=== PATIENT | male | born 2000 | race Native Hawaiian/Other Pacific Islander ===

== ENCOUNTER 2019-02-12 11:53 | Inpatient (IN) | payer MEDICAID ==
--- NOTE | 2019-02-12 12:31 | ED PDOC ---
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 Patient reports he is unable to bear this separation. He has thoughts of suicide but when he thinks about his family, he stops. He states he cut his arm on Friday with a clean knife. Denies any alcohol use, drug use, or hallucinations. PMD: none provided Past Medical History Reviewed: Historical Data, Nursing Documentation, Vital Signs Vital Signs: Last Vital Signs Temp 98.7 F 02/12/19 12:01 Pulse 90 02/12/19 12:01 Resp 18 02/12/19 12:01 BP 120/68 02/12/19 12:01 Pulse Ox 97 02/12/19 12:01 - Medical History PMH: No Chronic Diseases - Surgical History Surgical History: No Surg Hx - Family History Family History: States: Unknown Family Hx - Social History Alcohol: None Drugs: Denies - Home Medications Home Medications: Ambulatory Orders Medication Instructions Recorded Ascorbic Acid [Vitamin C 500 mg 1 tab PO DAILY 02/12/19 Tab] Cyanocobalamin [Vitamin B12 1000 1 tab PO DAILY 02/12/19 mcg Tab] [place]-3 Fatty Acids/Fish Oil [Fish 1 cap PO DAILY 02/12/19 Oil 1,000 mg Capsule] - Allergies Allergies/Adverse Reactions: Allergies Allergy/AdvReac Type Severity Reaction Status Date / Time No Known Allergies Allergy Verified 02/12/19 12:00 Review of Systems ROS Statement: Except As Marked, All Systems Reviewed And Found Negative Psych: Positive for: Suicidal ideation. Negative for: Other (Hallucinations) Physical Exam - Reviewed Nursing Documentation Reviewed: Yes Vital Signs Reviewed: Yes - Physical Exam Appears: Positive for: Non-toxic, No Acute Distress Head Exam: Positive for: ATRAUMATIC, NORMOCEPHALIC Skin: Positive for: Normal Color, Warm, Dry Eye Exam: Positive for: Normal appearance Neck: Positive for: Normal, Painless ROM Cardiovascular/Chest: Positive for: Regular Rate, Rhythm Respiratory: Positive for: Normal Breath Sounds. Negative for: Wheezing, Respiratory Distress Extremity: Positive for: Normal ROM, Other (11 superficial cuts to left forearm) Neurological/Psych: Positive for: Awake, Alert, Normal Tone, Oriented - Laboratory Results Result Diagrams: 02/12/19 15:55 02/12/19 15:55 - ECG ECG Rhythm: Positive for: Sinus Rhythm Interpretation Of ECG: Interpreted and viewed by Dr. Aguilar Rate: 69 O2 Sat by Pulse Oximetry: 97 (RA) Pulse Ox Interpretation: Normal Medical Decision Making Medical Decision Making: Initial Impression: Psychiatric Evaluation Initial Plan: --1:1 observation --Crisis evaluation 15:24 As per outreach and education social worker, mother wants patient to be admitted. rodding anode worker will interview the patient and ask if he is willing to sign in psychiatrically. In the meantime, will do a medical clearance workup including CBC, BMP, UA, EKG, chest X-ray, and alcohol level. 16:00 Patient to be admitted to psych under Dr. Borrero with diagnosis of depressed mood. Pending medical workup for medical clearance for psychiatric admission. 16:33 Patient is medically cleared for psychiatric admission. 20:03 Patient is calm and resting comfortably with mother at bedside. Pending bed availability in behavioral health unit. --- Scribe Attestation: Documented by Castillo Rodriguez and Nikkie Blake, acting as scribes for Charo Padilla APN. Provider Scribe Attestation: All medical record entries made by the Scribe were at my direction and personally dictated by me. I have reviewed the chart and agree that the record accurately reflects my personal performance of the history, physical exam, medical decision making, and the department course for this patient. I have also personally directed, reviewed, and agree with the discharge instructions and disposition. Disposition - Clinical Impression Clinical Impression: Depressed mood - Patient ED Disposition Is Patient to be Admitted: Yes Doctor Will See Patient In The: Hospital Counseled Patient/Family Regarding: Diagnosis - Disposition Disposition Time: 16:33 Condition: STABLE - POA Present On Arrival: None
[2019-02-12 16:12] LABS: BASO % 0.4 % (0.0-2.0); EOS # 0.1 K/uL (0.0-0.7); EOS % 0.8 % (0.0-4.0); HEMOGLOBIN 14.7 g/dL (12.0-18.0); LYMPH # 1.9 K/uL (1.0-4.3); LYMPH % 27.2 % (20.0-40.0); MEAN CELL VOLUME 88.8 fl (80.0-94.0); MEAN CORPUSCULAR HEMOGLOBIN 29.5 pg (27.0-31.0); MEAN CORPUSCULAR HGB CONC 33.3 g/dL (33.0-37.0); MONO # 0.6 K/uL (0.0-0.8); MONO % 7.9 % (0.0-10.0); NEUT # 4.5 K/uL (1.8-7.0); NEUT % 63.7 % (50.0-75.0); RED CELL DISTRIBUTION WIDTH 12.9 % (11.5-14.5); WHITE BLOOD COUNT 7.1 K/uL (4.8-10.8)
[2019-02-12 16:16] LABS: SQUAMOUS EPITHIAL < 1 /hpf (0-5); URINE BACTERIA RARE (<OCC); URINE BILIRUBIN NEGATIVE (NEGATIVE); URINE BLOOD MODERATE (NEGATIVE); URINE CLARITY SLIGHTY-CLOUDY (Clear); URINE COLOR YELLOW (YELLOW); URINE GLUCOSE (UA) NEG (NEGATIVE); URINE LEUKOCYTE ESTERASE NEG Leu/uL (Negative); URINE PROTEIN 30 mg/dL (NEGATIVE); URINE UROBILINOGEN 0.2-1.0 mg/dL (0.2-1.0)
[2019-02-12 16:24] LABS: BLOOD UREA NITROGEN 15 mg/dl (9-20); GFR NON-AFRICAN AMERICAN > 60
[2019-02-12 16:50] LABS: BARBITURATES, UR NEGATIVE (NEGATIVE); BENZODIAZEPINES, UR NEGATIVE (NEGATIVE); OPIATES, UR NEGATIVE (NEGATIVE); PHENCYCLIDINE, UR NEGATIVE (NEGATIVE)
--- NOTE | 2019-02-12 17:42 | RAD ---
Date of service: 02/12/2019 HISTORY: medical clearance COMPARISON: No prior. TECHNIQUE: Chest PA and lateral views FINDINGS: LUNGS: No active pulmonary disease. PLEURA: No significant pleural effusion identified. No pneumothorax apparent. CARDIOVASCULAR: No aortic atherosclerotic calcification present. Normal cardiac size. No pulmonary vascular congestion. OSSEOUS STRUCTURES: No significant abnormalities. VISUALIZED UPPER ABDOMEN: Normal. OTHER FINDINGS: None. IMPRESSION: No active disease.
[2019-02-12] MEDS ORDERED: DiphenhydrAMINE 50 mg/ml Inj IM PRN (21:35)
[2019-02-12] MEDS ORDERED: Alum-Mag Hydrox-Simethicone Susp (30 mL) PO PRN (21:35)
[2019-02-12] MEDS ORDERED: Magnesium Hydroxide Susp 30 ml UD PO PRN (21:35)
--- NOTE | 2019-02-12 21:48 | PCM.BM ---
<Kamran Morgan - Last Filed: 02/12/19 21:44> Treatment Plan Problems - Problems identified on initial assessmt Self Harm Date Initiated: 02/12/19 Time Initiated: :44 Assessment reference: NA Status: Active Priority: 1 Altered Sleep Pattern Date Initiated: 02/12/19 Time Initiated: 21:44 Assessment reference: NA Status: Active Priority: 2 Treatment assets and liabiliti Patient Assests: adapts well, cooperative, educated, self-reliant, ADL independent, physically healthy, good support system, negotiates basic needs, financial stabiity Patient Liabilities: relationship conflicts, other (self injury, poor sleep) - Milieu Protocol Maintain good personal hygiene: daily Encourage regular showers, daily Remind patient to perform daily oral care, daily Assist patient to perform ADL's Maintain personal safety: every shift Educate patient to report safety concerns to staff, every shift Monitor environment for contraband/sharps Medication safety: Monitor for expected outcome, potential side effects: every shift, Assess barriers to learning: every shift, Assess readiness for medication education: every shift <Mayco Johnson - Last Filed: 02/14/19 15:30> Family Contact Family involvement: Family/SO is involved Family contact: Patient agrees to contact, Family has been contacted by patient, Telephone contact initiated by staff Family contact name: Keesha - Mother Family contacted how many times per week?: 2 Family contact comment: Vendor Management Specialist left message for pt's mother and awaiting return call to gather collateral information. [phone]. - Goals for Treatment Patient goals for treatment: Pt offered no goals for treatment at this time as he currently does not feel depressed and wants to leave the unit and return to his life. Pt has signed a 48 hour notice. Discharge/Continuing Care - Education Needs Education Needs: Patient Medication, Patient Diagnosis/Disease Process, Patient Coping Skills, Patient Community resources, Patient Aftercare Safety Plan - Discharge Discharge Criteria: Tolerates medication w/o severe side effects, Free of Suicidal thoughts, Reduction of target symptoms Discharge to:: Other
[2019-02-12 22:13] VITALS: O2SAT 97
--- NOTE | 2019-02-13 09:59 | PCM.PSYCH ---
Initial Psychiatric Evaluation - Initial Psychiatric Evaluation Type of Admission: Voluntary Legal Status: Capacity Chief Complaint (in patient's own words): i broke up Patient's Reaction to Hospitalization: pt is upset. History of Present Illness and Precipitating Events: This is the ist psych admission for this 18 yr old male with h/o depression and admitted because after he broke up with his girlfriend became very depressed and suicidal ideation and wanted to jump out of window and when informed by a friend that he cut his forearm multiple times when he found out that his friend slept with the girlfriend.pt says that he broke up with girlfriend because she told him that she was sleeping with other guys .pt still not able to accept that he broke up with girlfriend and can not control his anger. Current Medications: Active Medications Generic Name Dose Route Start Last Admin Trade Name Freq PRN Reason Stop Dose Admin Acetaminophen 650 mg 02/12/19 21:35 Tylenol 325mg Tab PO Q4 PRN 4-7 pain Al Hydrox/Mg Hydrox/Simethicone 30 ml 02/12/19 21:35 Maalox Plus 30 Ml PO Q4 PRN Dyspepsia Diphenhydramine HCl 50 mg 02/12/19 21:35 Benadryl IM Q6 PRN Extrapyramidal S/S Unable PO Diphenhydramine HCl 50 mg 02/12/19 21:35 Benadryl PO Q6 PRN Extrapyramidal Symptoms Diphenhydramine HCl 50 mg 02/12/19 21:35 Benadryl PO HS PRN Sleep Haloperidol 5 mg 02/12/19 21:35 Haldol PO Q4 PRN Agitation Haloperidol Lactate 5 mg 02/12/19 21:35 Haldol IM Q4 PRN Agitation, Unable to Take PO Lorazepam 1 mg 02/12/19 21:35 Ativan PO Q8 PRN Anxiety/Agitation Lorazepam 2 mg 02/13/19 08:41 Ativan IM Q4 PRN Anxiety/Agitation,Unable PO Magnesium Hydroxide 30 ml 02/12/19 21:35 Milk Of Magnesia PO HS PRN Constipation Past Psychiatric History - Past Psychiatric History History of Abuse: pt denies History of ETOH/Drug Use: pt denies History of Family Illness: denies Pertinent Medical Hx (Current Medical&Sleep Prob, Allergies): Allergies Allergy/AdvReac Type Severity Reaction Status Date / Time No Known Allergies Allergy Verified 02/12/19 12:00 Ascorbic Acid [Vitamin C 500 mg Tab] 1 tab PO DAILY 02/12/19 Cyanocobalamin [Vitamin B12 1000 mcg Tab] 1 tab PO DAILY 02/12/19 [place]-3 Fatty Acids/Fish Oil [Fish Oil 1,000 mg Capsule] 1 cap PO DAILY 02/12/19 cut roland on forearm. Review of Systems - Review of Systems All systems: reviewed and no additional remarkable complaints except Mental Status Examination - Personal Presentation Personal Presentation: Looks stated age - Affect Affect: Constricted - Motor Activity Motor Activity: Other - Reliability in Providing Information Reliability in Providing Information: Fair - Speech Speech: Relevant - Mood Mood: Depressed, Anxious - Formal Thought Process Formal Thought Process: Flight of ideas - Obsessions/Compulsions Obsessions: No Compulsions: No - Cognitive Functions Orientation: Person, Place, Situation, Time Sensorium: Alert Attention/Concentration: Easily distracted Abstract Thinking: As evidence by abstract perception of proverbs Estimate of Intelligence: Average Judgement: Imparied, as evidence by: Poor judgement, Imparied, as evidence by: Lack of insight into illness Memory: Recent intact, as evidence by: Ability to recall events of the day, Remote intact, as evidenced by: Other - Risk Risk: Self-mutilation, Diminished functioning - Strength & Assets Inventory Strength & Assets Inventory: Family support DSM 5 DX - DSM 5 DSM 5 Diagnosis: Major depression adjustment disorder - Recommended/Plan of Treatment Treatment Recommendations and Plan of Treatment: pt agreed to start on zoloft 25 mg daily for depression and engage pt in therapy and groups and pt agreed. hospitalist consult Get collateral history from family Disposition planning when stable .
--- NOTE | 2019-02-13 11:58 | CP.PCM.CON ---
<Chey De La Torre - Last Filed: 02/13/19 12:26> History of Present Illness - History of Present Illness History of Present Illness: 18-year-old with no PMH evaluated in psych after being admitted for depression/suicidal ideation. Denies previous hospital admissions, N/V/D/C/SOB/CP/dysuria. PMH: denies Social: denies, freshman at [employer] Surg Hx: denies Meds: denies Hosp Admission: denies Fam Hx: denies ROS: all other systems reviewed and negative unless otherwise noted in HPI. Past Patient History - Past Social History Alcohol: None Drugs: Denies - CARDIAC Hx Cardiac Disorders: No - PULMONARY Hx Respiratory Disorders: No - NEUROLOGICAL Hx Neurological Disorder: No - HEENT Hx HEENT Problems: No - RENAL Hx Chronic Kidney Disease: No - ENDOCRINE/METABOLIC Hx Endocrine Disorders: No - HEMATOLOGICAL/ONCOLOGICAL Hx Blood Disorders: No - INTEGUMENTARY Hx Dermatological Problems: No - MUSCULOSKELETAL/RHEUMATOLOGICAL Hx Musculoskeletal Disorders: No - GASTROINTESTINAL Hx Gastrointestinal Disorders: No - GENITOURINARY/GYNECOLOGICAL Hx Genitourinary Disorders: No - PSYCHIATRIC Hx Substance Use: No - SURGICAL HISTORY Hx Surgeries: No - ANESTHESIA Hx Anesthesia: No Meds Allergies/Adverse Reactions: Allergies Allergy/AdvReac Type Severity Reaction Status Date / Time No Known Allergies Allergy Verified 02/12/19 12:00 - Medications Medications: Current Medications Acetaminophen (Tylenol 325mg Tab) 650 mg PO Q4 PRN PRN Reason: 4-7 pain Al Hydrox/Mg Hydrox/Simethicone (Maalox Plus 30 Ml) 30 ml PO Q4 PRN PRN Reason: Dyspepsia Diphenhydramine HCl (Benadryl) 50 mg IM Q6 PRN PRN Reason: Extrapyramidal S/S Unable PO Diphenhydramine HCl (Benadryl) 50 mg PO Q6 PRN PRN Reason: Extrapyramidal Symptoms Diphenhydramine HCl (Benadryl) 50 mg PO HS PRN PRN Reason: Sleep Haloperidol (Haldol) 5 mg PO Q4 PRN PRN Reason: Agitation Haloperidol Lactate (Haldol) 5 mg IM Q4 PRN PRN Reason: Agitation, Unable to Take PO Lorazepam (Ativan) 1 mg PO Q8 PRN PRN Reason: Anxiety/Agitation Lorazepam (Ativan) 2 mg IM Q4 PRN PRN Reason: Anxiety/Agitation,Unable PO Magnesium Hydroxide (Milk Of Magnesia) 30 ml PO HS PRN PRN Reason: Constipation Sertraline HCl (Zoloft) 25 mg PO DAILY RODNEY Physical Exam - Constitutional Appears: Non-toxic - Head Exam Head Exam: NORMAL INSPECTION - Eye Exam Eye Exam: Normal appearance - Respiratory Exam Respiratory Exam: NORMAL BREATHING PATTERN. absent: Respiratory Distress - Cardiovascular Exam Cardiovascular Exam: REGULAR RHYTHM - GI/Abdominal Exam GI & Abdominal Exam: Soft. absent: Tenderness - Extremities Exam Additional comments: multiple well-healing lacerations on left posterior forearm; no erythema, discharge or tenderness to palpation - Neurological Exam Neurological exam: Alert, Oriented x3 - Psychiatric Exam Psychiatric exam: Depressed, Flat Affect - Skin Skin Exam: Normal Color Results - Vital Signs Recent Vital Signs: Last Vital Signs Temp 97.1 F L 02/13/19 09:00 Pulse 103 H 02/13/19 09:00 Resp 20 02/13/19 09:00 BP 112/76 02/13/19 09:00 Pulse Ox 97 02/13/19 00:05 - Labs Result Diagrams: 02/12/19 15:55 02/12/19 15:55 Labs: Laboratory Results - last 24 hr 02/12/19 02/12/19 02/12/19 15:55 15:55 15:55 WBC 7.1 RBC 5.00 Hgb 14.7 Hct 44.3 MCV 88.8 MCH 29.5 MCHC 33.3 RDW 12.9 Plt Count 270 MPV 8.0 Neut % (Auto) 63.7 Lymph % (Auto) 27.2 [place] % (Auto) 7.9 Eos % (Auto) 0.8 Baso % (Auto) 0.4 Neut # (Auto) 4.5 Lymph # (Auto) 1.9 [place] # (Auto) 0.6 Eos # (Auto) 0.1 Baso # (Auto) 0.0 Sodium 138 Potassium 4.1 Chloride 102 Carbon Dioxide 26 Anion Gap 14 BUN 15 Creatinine 0.8 Est GFR ( Amer) > 60 Est GFR (Non-Af Amer) > 60 Random Glucose 89 Calcium 10.0 Triglycerides Cholesterol LDL Cholesterol Direct HDL Cholesterol Thyroxine (T4) TSH 3rd Generation Urine Color Urine Clarity Urine pH Ur Specific [place] Urine Protein Urine Glucose (UA) Urine Ketones Urine Blood Urine Nitrate Urine Bilirubin Urine Urobilinogen Ur Leukocyte Esterase Urine RBC (Auto) Urine Microscopic WBC Ur Squamous Epith Cells Urine Bacteria Urine Opiates Screen Negative Urine Methadone Screen Negative Ur Barbiturates Screen Negative Ur Phencyclidine Scrn Negative Ur Amphetamines Screen Negative U Benzodiazepines Scrn Negative U Oth Cocaine Metabols Negative U Cannabinoids Screen Negative Alcohol, Quantitative < 10 02/12/19 02/13/19 15:55 06:45 WBC RBC Hgb Hct MCV MCH MCHC RDW Plt Count MPV Neut % (Auto) Lymph % (Auto) [place] % (Auto) Eos % (Auto) Baso % (Auto) Neut # (Auto) Lymph # (Auto) [place] # (Auto) Eos # (Auto) Baso # (Auto) Sodium Potassium Chloride Carbon Dioxide Anion Gap BUN Creatinine Est GFR ( Amer) Est GFR (Non-Af Amer) Random Glucose Calcium Triglycerides 58 Cholesterol 182 LDL Cholesterol Direct 103 HDL Cholesterol 51 Thyroxine (T4) 9.73 TSH 3rd Generation 0.65 Urine Color Yellow Urine Clarity Slighty-cloudy Urine pH 6.0 Ur Specific [place] 1.031 H Urine Protein 30 Urine Glucose (UA) Neg Urine Ketones 80 Urine Blood Moderate Urine Nitrate Negative Urine Bilirubin Negative Urine Urobilinogen 0.2-1.0 Ur Leukocyte Esterase Neg Urine RBC (Auto) 20 H Urine Microscopic WBC 3 Ur Squamous Epith Cells < 1 Urine Bacteria Rare Urine Opiates Screen Urine Methadone Screen Ur Barbiturates Screen Ur Phencyclidine Scrn Ur Amphetamines Screen U Benzodiazepines Scrn U Oth Cocaine Metabols U Cannabinoids Screen Alcohol, Quantitative Assessment & Plan - Assessment and Plan (Free Text) Plan: Depression -management as per psych <Jailene Hester - Last Filed: 02/13/19 14:52> Meds - Medications Medications: Current Medications Acetaminophen (Tylenol 325mg Tab) 650 mg PO Q4 PRN PRN Reason: 4-7 pain Al Hydrox/Mg Hydrox/Simethicone (Maalox Plus 30 Ml) 30 ml PO Q4 PRN PRN Reason: Dyspepsia Diphenhydramine HCl (Benadryl) 50 mg IM Q6 PRN PRN Reason: Extrapyramidal S/S Unable PO Diphenhydramine HCl (Benadryl) 50 mg PO Q6 PRN PRN Reason: Extrapyramidal Symptoms Diphenhydramine HCl (Benadryl) 50 mg PO HS PRN PRN Reason: Sleep Haloperidol (Haldol) 5 mg PO Q4 PRN PRN Reason: Agitation Haloperidol Lactate (Haldol) 5 mg IM Q4 PRN PRN Reason: Agitation, Unable to Take PO Lorazepam (Ativan) 1 mg PO Q8 PRN PRN Reason: Anxiety/Agitation Lorazepam (Ativan) 2 mg IM Q4 PRN PRN Reason: Anxiety/Agitation,Unable PO Magnesium Hydroxide (Milk Of Magnesia) 30 ml PO HS PRN PRN Reason: Constipation Sertraline HCl (Zoloft) 25 mg PO DAILY RODNEY Last Admin: 02/13/19 12:54 Dose: 25 mg Results - Vital Signs Recent Vital Signs: Last Vital Signs Temp 97.1 F L 02/13/19 09:00 Pulse 103 H 02/13/19 09:00 Resp 20 02/13/19 09:00 BP 112/76 02/13/19 09:00 Pulse Ox 97 02/13/19 00:05 - Labs Result Diagrams: 02/12/19 15:55 02/12/19 15:55 Labs: Laboratory Results - last 24 hr 02/12/19 02/12/19 02/12/19 15:55 15:55 15:55 WBC 7.1 RBC 5.00 Hgb 14.7 Hct 44.3 MCV 88.8 MCH 29.5 MCHC 33.3 RDW 12.9 Plt Count 270 MPV 8.0 Neut % (Auto) 63.7 Lymph % (Auto) 27.2 [place] % (Auto) 7.9 Eos % (Auto) 0.8 Baso % (Auto) 0.4 Neut # (Auto) 4.5 Lymph # (Auto) 1.9 [place] # (Auto) 0.6 Eos # (Auto) 0.1 Baso # (Auto) 0.0 Sodium 138 Potassium 4.1 Chloride 102 Carbon Dioxide 26 Anion Gap 14 BUN 15 Creatinine 0.8 Est GFR ( Amer) > 60 Est GFR (Non-Af Amer) > 60 Random Glucose 89 Calcium 10.0 Triglycerides Cholesterol LDL Cholesterol Direct HDL Cholesterol Thyroxine (T4) TSH 3rd Generation Urine Color Urine Clarity Urine pH Ur Specific [place] Urine Protein Urine Glucose (UA) Urine Ketones Urine Blood Urine Nitrate Urine Bilirubin Urine Urobilinogen Ur Leukocyte Esterase Urine RBC (Auto) Urine Microscopic WBC Ur Squamous Epith Cells Urine Bacteria Urine Opiates Screen Negative Urine Methadone Screen Negative Ur Barbiturates Screen Negative Ur Phencyclidine Scrn Negative Ur Amphetamines Screen Negative U Benzodiazepines Scrn Negative U Oth Cocaine Metabols Negative U Cannabinoids Screen Negative Alcohol, Quantitative < 10 02/12/19 02/13/19 15:55 06:45 WBC RBC Hgb Hct MCV MCH MCHC RDW Plt Count MPV Neut % (Auto) Lymph % (Auto) [place] % (Auto) Eos % (Auto) Baso % (Auto) Neut # (Auto) Lymph # (Auto) [place] # (Auto) Eos # (Auto) Baso # (Auto) Sodium Potassium Chloride Carbon Dioxide Anion Gap BUN Creatinine Est GFR ( Amer) Est GFR (Non-Af Amer) Random Glucose Calcium Triglycerides 58 Cholesterol 182 LDL Cholesterol Direct 103 HDL Cholesterol 51 Thyroxine (T4) 9.73 TSH 3rd Generation 0.65 Urine Color Yellow Urine Clarity Slighty-cloudy Urine pH 6.0 Ur Specific [place] 1.031 H Urine Protein 30 Urine Glucose (UA) Neg Urine Ketones 80 Urine Blood Moderate Urine Nitrate Negative Urine Bilirubin Negative Urine Urobilinogen 0.2-1.0 Ur Leukocyte Esterase Neg Urine RBC (Auto) 20 H Urine Microscopic WBC 3 Ur Squamous Epith Cells < 1 Urine Bacteria Rare Urine Opiates Screen Urine Methadone Screen Ur Barbiturates Screen Ur Phencyclidine Scrn Ur Amphetamines Screen U Benzodiazepines Scrn U Oth Cocaine Metabols U Cannabinoids Screen Alcohol, Quantitative Attending/Attestation - Attestation I have personally seen and examined this patient.: Yes I have fully participated in the care of the patient.: Yes I have reviewed all pertinent clinical information: Yes Notes (Text): 02/13/19 14:51 This is a 18-year-old male with no past medical history, student at [employer] , admitted to psych for suicidal ideation after breakup with his girlfriend. He has no other complaints at this time, is hemodynamically stable, is in no acute distress. Suicidal ideation management per psychiatry team.
--- NOTE | 2019-02-13 20:39 | CARD ---
APPROVED REPORT Date of service: 02/12/2019 EKG Measurement Heart [id number] <Conclusion> Normal sinus rhythm with sinus arrhythmia Normal ECG
[2019-02-14 08:51] VITALS: RESP 18
--- NOTE | 2019-02-14 13:39 | PCM.PYCHPN ---
Psychiatric Progress Note - Psychiatric Progress Note Patient seen today, length of contact: pt seen and evaluated Patient Chief Complaint: pt has remained anxious and wanting to leaving the unit and appears to be obsessed with negative thoughts about his girl friend as to how she treated him and wants me to agree with him that her behavior is not normal and still obsessed with wanting her although he broke up with her and remains unstable psychatrically and remains unpredictable for suicidal behavior and need further stabilization. Medication Change: Yes Medical Record Reviewed: Yes Mental Status Examination - Cognitive Function Orientation: Person, Place, Situation, Time Memory: Intact Attention: Poor Concentration: Poor Association: WNL Fund of Knowledge: WNL - Mood Mood: Depressed, Anxious - Affect Affect: Constricted - Formal Thought Process Formal Thought Process: Flight of ideas - Suicidal Ideation Suicidal Ideation: No - Homicidal Ideation Homicidal Ideation: No Goal/Treatment Plan - Goal/Treatment Plan Progress Toward Problem(s) and Goals/Treatment Plan: Will continue pt on zoloft 25 mg daily for depression and engage pt in therapy and groups and pt agreed. hospitalist consult Get collateral history from family Disposition planning when stable .
[2019-02-15 10:46] VITALS: BP 121/84; PULSE 64; TEMP 97.8
--- NOTE | 2019-02-15 12:11 | PCM.PYCHDC ---
Mental Status Examination - Mental Status Examination Orientation: Person, Place, Situation, Time Memory: Intact Mood: Neutral Affect: Broad Speech: Appropriate Attention: WNL Concentration: WNL Association: WNL Fund of Knowledge: WNL Formal Thought Process: No Impairment Description of patient's judgement and insight: partial insight fair judgment Psychotic Thoughts and Behaviors: pt on discharge denied psychotic symptoms, non elicited Suicidal Ideation: No Current Homicidal Ideation?: No Discharge Summary - Discharge Note Reason for Hospitalization: as per admission note by Dr vera This is the ist psych admission for this 18 yr old male with h/o depression and admitted because after he broke up with his girlfriend became very depressed and suicidal ideation and wanted to jump out of window and when informed by a friend that he cut his forearm multiple times when he found out that his friend slept with the girlfriend.pt says that he broke up with girlfriend because she told him that she was sleeping with other guys .pt still not able to accept that he broke up with girlfriend and can not control his anger. Consultations:: List each consultation separately and include: 1. Reason for request. 2. Findings. 3. Follow-up Summary of Hospital Course include:: 1. Description of specific treatment plan utilized for patients during their course of treatmen. 2. Summarize the time- course for resolution of acute symptoms and/or regressed behaviors. 3. Describe issues identified and worked on during hospitalization. 4. Describe medication utilized. 5. Describe medical problems identified and treated. 6. Reassessment of suicide risk Summary of Hospital Course: pt onadmission presented with depressed mood and affect , he was started on zoloft but pt refused medications, he was compliant with attending groups, pt was able to verbalize the reason for his depression, and that he has hard time to handle the break up with the girl friend, pt agreed to start outpatient therapy CBT and supportive therapy provided discussed with pt the need to grieve the relation, also discussed healthy coping skills and avoidance of self harm upon pt consent treatment plan was discussed with mother [phone], she expressed no concerns and denied any previous suicidal attempts by pt on discharge pt mental status was stable, denied any current suicidal or homicidal ideation denied perceptual disturbances follow up arranged with [facility] - Final Diagnosis (DSM 5) Condition upon Discharge: STABLE DSM 5: adjustment disorder with depressed mood depressive disorder not otherwise specified Disposition: HOME/ ROUTINE - Antipsychotic Medications Pt discharged on 2 or more routine antipsychotic medications: No
== END 2019-02-15 13:08 | disposition home or self-care (01) | DRG 426 ==
LOC: H.ER 11:53 → H.ERHOLD 16:35 → H.PSYCH 21:31
PROVIDERS: ADMIT Psychiatry & Neurology Psychiatry; ATTEND Psychiatry & Neurology Psychiatry
PROC: GZHZZZZ Group Psychotherapy (ICD-10-PCS; principal; 2019-02-12)
PROC: GZ58ZZZ Individual Psychotherapy, Cognitive-Behavioral (ICD-10-PCS; 2019-02-12)
PROC: GZ56ZZZ Individual Psychotherapy, Supportive (ICD-10-PCS; 2019-02-12)
DX: F43.21 Adjustment disorder with depressed mood (principal); R45.851 Suicidal ideations